=== PATIENT | male | born 1970 | race Caucasian/White ===

== ENCOUNTER 2019-07-13 04:19 | Emergency (ER) | payer MEDICAID ==
[~2019-07-13] VITALS: Ht 167.6 cm; Wt 100.2 kg
[~2019-07-13 04:19] MED LIST: CLON0.5T PO; CLON1TAB PO; TRAM50TA2 PO
--- NOTE | 2019-07-13 04:20 | NUR ---
BIBRA FROM HOME S/P "SNORTED MULTIPLE LINES OF BATHSALTS" , + tachycardia
[2019-07-13] MEDS ORDERED: LORAZEPAM INJ 2 MG/ML VIAL IV ONE (04:30)
[2019-07-13] MEDS ORDERED: LORAZEPAM INJ 2 MG/ML VIAL ONE (04:31)
[2019-07-13 04:34] LABS: BASOPHILS # (AUTO) 0.1 /CMM (0.0-0.2); BASOPHILS % (AUTO) 0.6 % (0.0-2.0); EOSINOPHILS % (AUTO) 0.3 % (0.0-6.0); HEMATOCRIT 50 % (39-51); LYMPHOCYTES # (AUTO) 1.3 /CMM (0.8-4.8); LYMPHOCYTES % (AUTO) 9.4 % (20.0-44.0); MEAN CORPUSCULAR HGB CONC 34 g/dl (31.0-36.0); MEAN CORPUSCULAR VOLUME 90 fL (80-96); MONOCYTES # (AUTO) 1.3 /CMM (0.1-1.30); NEUTROPHILS # (AUTO) 11.3 /CMM (1.8-8.9); NEUTROPHILS % (AUTO) 80.7 % (43.0-81.0); PLATELET COUNT (AUTO) 298 /CMM (150-450); RED BLOOD CELL COUNT(AUTO) 5.52 MIL/uL (4.5-6.0); WHITE BLOOD COUNT (AUTO) 14.1 K/uL (4.3-11.0)
[2019-07-13 04:41] LABS: CALCIUM, SERUM 9.7 mg/dL (8.5-10.1); CARBON DIOXIDE 28 mmol/L (21-32); CHLORIDE 97 mmol/L (98-107); CREATININE 1.5 mg/dL (0.6-1.3); GLUCOSE 155 mg/dL (74-106); POTASSIUM 3.8 mmol/L (3.5-5.1); SODIUM SERUM 135 mmol/L (136-145); UREA NITROGEN, BLOOD 20 mg/dL (7-18)
[2019-07-13] MEDS ORDERED: HALOPERIDOL LACTATE INJ 5 MG/ML VIAL ONE (04:57)
[2019-07-13] MEDS ORDERED: diphenhydrAMINE HCL 50 MG/ML VIAL ONE (04:57)
[2019-07-13] MEDS ORDERED: HALOPERIDOL LACTATE INJ 5 MG/ML VIAL IV ONE (05:00)
[2019-07-13] MEDS ORDERED: IV NS 0.9% 1,000 ML IV PRN (05:00)
[2019-07-13] MEDS ORDERED: diphenhydrAMINE HCL 50 MG/ML VIAL IV ONE (05:00)
--- NOTE | 2019-07-13 05:08 | NUR ---
an ecg prior to administration of haldol ivp was obtained. Pt remained on cont legal coordinator after receiving the medication. will cont to observe the pt closely
--- NOTE | 2019-07-13 07:42 | NUR ---
PATIENT RECEIVED SLEEPING IN GURNEY, EASILY AROUSABLE BY VOICE. HOOKED TO MONITOR, VSS. WILL CONTINUE TO MONITOR ACCORDINGLY, KEPT SAFE AND COMFORTABLE.
--- NOTE | 2019-07-13 09:21 | NUR ---
BREAKFAST TRAY PROVIDED. TOLERATING PO WELL.
--- NOTE | 2019-07-13 10:16 | NUR ---
PATIENT ABLE TO AMBULATE TO RESTROOM W STEADY GAIT.
--- NOTE | 2019-07-13 10:26 | NUR ---
IV removed. Catheter intact and site benign. Pressure and 4x4 applied to site. No bleeding noted. Patient discharged to home, assisted to waiting room in stable condition. Written and verbal after care instructions given. Patient verbalizes understanding of instruction. Patient will call mother to pick him up.
[2019-07-13 10:28] VITALS: BP 134/86
== END 2019-07-13 10:28 | disposition home or self-care (01) ==
LOC: ER 04:20
DX: F19.10 Other psychoactive substance abuse, uncomplicated (principal); F41.9 Anxiety disorder, unspecified; F43.10 Post-traumatic stress disorder, unspecified; F10.10 Alcohol abuse, uncomplicated; R00.0 Tachycardia, unspecified; Y90.9 Presence of alcohol in blood, level not specified; Z79.899 Other long term (current) drug therapy
CPT/HCPCS: 36415; 80048; 84484; 85025; 93005; 96374; 96375; 99284; J1200; J1630; J2060; J7030

== ENCOUNTER 2021-07-19 20:08 | Emergency (ER) | payer MEDICAID ==
[~2021-07-19] VITALS: Ht 172.7 cm; Wt 74.8 kg
[2021-07-19 20:49] VITALS: BP 134/77
[2021-07-19] MEDS ORDERED: IBUP-1955 PO (21:31)
--- NOTE | 2021-07-19 21:39 | NUR ---
Patient discharged to home in stable condition. Written and verbal after care instructions given. Patient verbalizes understanding of instruction.
== END 2021-07-19 21:40 | disposition home or self-care (01) ==
LOC: ER 20:18
DX: M25.562 Pain in left knee (principal); Z79.1 Long term (current) use of non-steroidal anti-inflammatories (NSAID); Z79.899 Other long term (current) drug therapy
CPT/HCPCS: 73564-TC

== ENCOUNTER 2021-10-26 07:25 | Emergency (ER) | payer MEDICAID ==
[~2021-10-26] VITALS: Ht 180.3 cm; Wt 86.2 kg
[~2021-10-26 07:25] MED LIST changes: +IBUP-1955 PO
--- NOTE | 2021-10-26 07:25 | NUR ---
BIB RA 87 FROM HOME,THROAT PAIN RADIATING TO MID-CHEST SINCE LAST NIGHT,TO ER 8,MONITOR APPLIED,EKG PER PROTOCOL
--- NOTE | 2021-10-26 07:48 | NUR ---
SALINE LOCK ESTABLISHED, BLOOD DRAWN AND SENT TO LAB
--- NOTE | 2021-10-26 07:50 | NUR ---
SEEN BY DR DRISCOLL
[2021-10-26] MEDS ORDERED: CLOP75TA15 PO (08:12)
[2021-10-26] MEDS ORDERED: LISI20TA30 PO (08:12)
[2021-10-26 08:14] LABS: BASOPHILS % (AUTO) 0.7 % (0.0-2.0); EOSINOPHILS % (AUTO) 2.3 % (0.0-6.0); HEMATOCRIT 44 % (39-51); HEMOGLOBIN 15.4 g/dL (13.5-17.5); LYMPHOCYTES % (AUTO) 27.3 % (20.0-44.0); MEAN CORPUSCULAR HGB CONC 35 g/dl (31.0-36.0); MEAN CORPUSCULAR VOLUME 88 fL (80-96); MONOCYTES # (AUTO) 0.6 K/uL (0.1-1.30); MONOCYTES % (AUTO) 8.2 % (2.0-12.0); NEUTROPHILS # (AUTO) 4.6 K/uL (1.8-8.9); NEUTROPHILS % (AUTO) 61.5 % (43.0-81.0); PLATELET COUNT (AUTO) 266 K/uL (150-450); RED BLOOD CELL COUNT(AUTO) 5.01 MIL/uL (4.5-6.0); WHITE BLOOD COUNT (AUTO) 7.5 K/uL (4.3-11.0)
--- NOTE | 2021-10-26 08:19 | NUR ---
COVID SWAB COLLECTED AND SENT TO LAB
[2021-10-26 08:50] LABS: ALANINE AMINOTRANSFERASE 105 U/L (12-78); ALBUMIN 3.8 g/dL (3.4-5.0); ALKALINE PHOSPHATASE 85 U/L (46-116); ASPARTATE AMINOTRANSFERASE 47 U/L (15-37); BILIRUBIN,DIRECT 0.1 mg/dL (0.0-0.2); BILIRUBIN,TOTAL 0.6 mg/dL (0.2-1.0); CALCIUM, SERUM 8.2 mg/dL (8.5-10.1); CARBON DIOXIDE 26 mmol/L (21-32); CHLORIDE 101 mmol/L (98-107); CREATININE 1.1 mg/dL (0.6-1.3); GLUCOSE 104 mg/dL (74-106); POTASSIUM 3.6 mmol/L (3.5-5.1); SODIUM SERUM 136 mmol/L (136-145); TOTAL PROTEIN, SERUM 7.4 g/dL (6.4-8.2); UREA NITROGEN, BLOOD 23 mg/dL (7-18)
[2021-10-26] MEDS ORDERED: ASPIRIN 325 MG TABLET PO ONE (10:30)
[2021-10-26] MEDS ORDERED: NITROGLYCERIN 0.4 MG/TAB BOTTLE SL ONE (10:30)
[2021-10-26] MEDS ORDERED: NITROGLYCERIN 0.4 MG/TAB BOTTLE ONE (10:38)
[2021-10-26] MEDS ORDERED: ASPIRIN 325 MG TABLET ONE (10:39)
[2021-10-26 11:00] VITALS: BP 142/86
--- NOTE | 2021-10-26 11:20 | NUR ---
Patient eloped from facility in stable condition. ER MD notified.
== END 2021-10-26 11:32 | disposition left against medical advice (07) ==
LOC: ER 07:35
DX: R07.9 Chest pain, unspecified (principal); R06.00 Dyspnea, unspecified; I25.10 Atherosclerotic heart disease of native coronary artery without angina pectoris; Z95.5 Presence of coronary angioplasty implant and graft; Z79.02 Long term (current) use of antithrombotics/antiplatelets; Z79.899 Other long term (current) drug therapy; F43.10 Post-traumatic stress disorder, unspecified; F41.9 Anxiety disorder, unspecified; Z20.822 Contact with and (suspected) exposure to COVID-19; Z53.20 Procedure and treatment not carried out because of patient's decision for unspecified reasons
CPT/HCPCS: 36415; 71045; 80048; 80076; 83880; 84484 ×2; 85025; 87426; 93005; 99291; C9803

== ENCOUNTER 2022-03-17 16:35 | Emergency (ER) | payer MEDICAID ==
[~2022-03-17] VITALS: Ht 175.3 cm; Wt 104.8 kg
[~2022-03-17 16:35] MED LIST changes: -CLON0.5T PO; -CLON1TAB PO; +CLOP75TA15 PO; -IBUP-1955 PO; +LISI20TA30 PO; -TRAM50TA2 PO
--- NOTE | 2022-03-17 17:05 | NUR ---
DR ARDON AT BEDSIDE FOR EVAL
--- NOTE | 2022-03-17 17:05 | NUR ---
URINE SAMPLE COLLECTED AND SENT TO LAB
--- NOTE | 2022-03-17 17:30 | NUR ---
IV LINE ESTABLISHED ON LAC #20, BLOOD DRAWN AND SENT TO LAB
[2022-03-17 17:36] LABS: BASOPHILS % (AUTO) 0.7 % (0.0-2.0); EOSINOPHILS % (AUTO) 0.8 % (0.0-6.0); HEMATOCRIT 46 % (39-51); HEMOGLOBIN 15.4 g/dL (13.5-17.5); LYMPHOCYTES % (AUTO) 28.7 % (20.0-44.0); MEAN CORPUSCULAR HGB CONC 33 g/dl (31.0-36.0); MEAN CORPUSCULAR VOLUME 90 fL (80-96); MONOCYTES # (AUTO) 0.5 K/uL (0.1-1.30); MONOCYTES % (AUTO) 14.5 % (2.0-12.0); NEUTROPHILS % (AUTO) 55.3 % (43.0-81.0); PLATELET COUNT (AUTO) 182 K/uL (150-450); RED BLOOD CELL COUNT(AUTO) 5.14 MIL/uL (4.5-6.0); WHITE BLOOD COUNT (AUTO) 3.6 K/uL (4.3-11.0)
[2022-03-17 17:45] LABS: CALCIUM, SERUM 8.5 mg/dL (8.5-10.1); CARBON DIOXIDE 28 mmol/L (21-32); CHLORIDE 105 mmol/L (98-107); CREATININE 1.3 mg/dL (0.6-1.3); GLUCOSE 108 mg/dL (74-106); SODIUM SERUM 141 mmol/L (136-145); UREA NITROGEN, BLOOD 10 mg/dL (7-18)
--- NOTE | 2022-03-17 17:46 | NUR ---
TECH AT BEDSIDE FOR EKG
[2022-03-17] MEDS ORDERED: ACETAMINOPHEN ES 500 MG TABLET PO ONE (19:00)
[2022-03-17] MEDS ORDERED: ACETAMINOPHEN ES 500 MG TABLET ONE (19:04)
--- NOTE | 2022-03-17 20:19 | NUR ---
DATA COMPILER AT PT'S BEDSIDE
--- NOTE | 2022-03-17 21:04 | NUR ---
Patient discharged to home in stable condition. Written and verbal after care instructions given. Patient verbalizes understanding of instruction. IV removed. Catheter intact and site benign. Pressure and 4x4 applied to site. No bleeding noted. pt ambulatory with a steady gait
[2022-03-17 21:05] VITALS: BP 121/67
== END 2022-03-17 21:05 | disposition home or self-care (01) ==
LOC: ER 16:37
DX: R07.89 Other chest pain (principal); I10 Essential (primary) hypertension; F41.9 Anxiety disorder, unspecified; F43.10 Post-traumatic stress disorder, unspecified; F20.9 Schizophrenia, unspecified; F32.A Depression, unspecified; Z88.0 Allergy status to penicillin; Z88.6 Allergy status to analgesic agent; Z79.899 Other long term (current) drug therapy
CPT/HCPCS: 36415; 71045-TC; 80048-TC; 84484-TC; 85025-TC

== ENCOUNTER 2022-10-29 07:49 | Emergency (ER) | payer MEDICAID ==
[~2022-10-29] VITALS: Ht 177.8 cm; Wt 104.3 kg
--- NOTE | 2022-10-29 08:40 | NUR ---
PT ON BED HOOKED TO MONITOR AND PULSE CC OF RT HEADACHE. 02/20. MD AT BEDSIDE FOR EVAL. AWAITING FOR MD ORDERS
[2022-10-29] MEDS ORDERED: ACETAMINOPHEN ES 500 MG TABLET ONE (08:56)
[2022-10-29] MEDS ORDERED: diphenhydrAMINE HCL 50 MG/ML VIAL ONE (08:56)
[2022-10-29] MEDS ORDERED: METOCLOPRAMIDE HCL 10 MG/2 ML VIAL ONE (08:56)
[2022-10-29] MEDS ORDERED: METOCLOPRAMIDE HCL 10 MG/2 ML VIAL IV ONE (09:00)
[2022-10-29] MEDS ORDERED: IV NS 0.9% 1,000 ML BAG IV ONE (09:00)
[2022-10-29] MEDS ORDERED: diphenhydrAMINE HCL 50 MG/ML VIAL IV ONE (09:00)
[2022-10-29] MEDS ORDERED: ACETAMINOPHEN ES 500 MG TABLET PO ONE (09:00)
[2022-10-29 09:26] LABS: BASOPHILS # (AUTO) 0.1 K/uL (0.0-0.2); BASOPHILS % (AUTO) 1.1 % (0.0-2.0); EOSINOPHILS % (AUTO) 5.8 % (0.0-6.0); HEMATOCRIT 46 % (39-51); HEMOGLOBIN 15.5 g/dL (13.5-17.5); LYMPHOCYTES # (AUTO) 1.6 K/uL (0.8-4.8); LYMPHOCYTES % (AUTO) 18.5 % (20.0-44.0); MEAN CORPUSCULAR HGB CONC 34 g/dl (31.0-36.0); MEAN CORPUSCULAR VOLUME 89 fL (80-96); MONOCYTES # (AUTO) 0.5 K/uL (0.1-1.30); NEUTROPHILS # (AUTO) 5.9 K/uL (1.8-8.9); NEUTROPHILS % (AUTO) 68.6 % (43.0-81.0); PLATELET COUNT (AUTO) 243 K/uL (150-450); RED BLOOD CELL COUNT(AUTO) 5.13 MIL/uL (4.5-6.0); WHITE BLOOD COUNT (AUTO) 8.6 K/uL (4.3-11.0)
[2022-10-29 09:41] LABS: CARBON DIOXIDE 27 mmol/L (21-32); CHLORIDE 100 mmol/L (98-107); CREATININE 1.1 mg/dL (0.6-1.3); GLUCOSE 118 mg/dL (74-106); POTASSIUM 3.5 mmol/L (3.5-5.1); SODIUM SERUM 136 mmol/L (136-145); UREA NITROGEN, BLOOD 13 mg/dL (7-18)
[2022-10-29] MEDS ORDERED: IOHEXOL-300 100 ML VIAL IV ONE (09:50)
--- NOTE | 2022-10-29 10:32 | NUR ---
COVID AND STREP SWAB DONE SENT TO LAB
[2022-10-29] MEDS ORDERED: DOXY100T2 PO (10:38)
[2022-10-29 10:59] VITALS: BP 130/85
== END 2022-10-29 11:03 | disposition home or self-care (01) ==
LOC: ER 07:52
DX: J32.9 Chronic sinusitis, unspecified (principal); R51.9 Headache, unspecified; I10 Essential (primary) hypertension; I25.10 Atherosclerotic heart disease of native coronary artery without angina pectoris; F41.9 Anxiety disorder, unspecified; F32.A Depression, unspecified; F20.9 Schizophrenia, unspecified; Z79.899 Other long term (current) drug therapy; Z20.822 Contact with and (suspected) exposure to COVID-19; Z88.0 Allergy status to penicillin; Z88.1 Allergy status to other antibiotic agents
CPT/HCPCS: 99285; 70450; 96374; 71045; 96361; 96375; 87426; 93005; 70490; 85025; 80048; 36415; 87880; 84484; J1200; J2765; J7030; Q9967; C9803; 86403-TC

== ENCOUNTER → 2023-08-17 | Emergency (ER) | payer MEDICAID ==
[~2023-08-17] VITALS: Ht 175.3 cm; Wt 108.9 kg
[~2023-08-17] MED LIST changes: +DOXY100T2 PO
[2023-08-17 10:13] VITALS: BP 160/93; TEMP 98.4; O2SAT 97
== END | disposition home or self-care (01) ==
LOC: ER 09:34
DX: R06.02 Shortness of breath (principal); I10 Essential (primary) hypertension; F41.9 Anxiety disorder, unspecified; F20.9 Schizophrenia, unspecified; F32.A Depression, unspecified; Z88.0 Allergy status to penicillin; Z88.8 Allergy status to other drugs, medicaments and biological substances
CPT/HCPCS: 71045-TC

== ENCOUNTER 2024-08-04 10:56 | Emergency (ER) | payer MEDICAID ==
[~2024-08-04] VITALS: Ht 175.3 cm; Wt 113.4 kg
[2024-08-04] MEDS ORDERED: IBUP-1955 PO (13:44)
[2024-08-04 13:51] VITALS: BP 141/81; TEMP 98.3; O2SAT 97
== END 2024-08-04 13:52 | disposition home or self-care (01) ==
LOC: ER 11:44
DX: M25.572 Pain in left ankle and joints of left foot (principal); F20.9 Schizophrenia, unspecified; I10 Essential (primary) hypertension; I25.10 Atherosclerotic heart disease of native coronary artery without angina pectoris; Z79.02 Long term (current) use of antithrombotics/antiplatelets; Z79.899 Other long term (current) drug therapy; Z88.0 Allergy status to penicillin; Z88.6 Allergy status to analgesic agent; Z95.5 Presence of coronary angioplasty implant and graft
CPT/HCPCS: 73610-TC; 93971-TC

== ENCOUNTER 2024-08-23 06:29 | Emergency (ER) | payer MEDICAID ==
[~2024-08-23] VITALS: Ht 177.8 cm; Wt 108.9 kg
[~2024-08-23 06:29] MED LIST changes: +IBUP-1955 PO
[2024-08-23 06:53] VITALS: BP 147/81; TEMP 98.3; O2SAT 97
== END 2024-08-23 07:36 | disposition left against medical advice (07) ==
LOC: ER 06:29
DX: R06.02 Shortness of breath (principal); Z53.21 Procedure and treatment not carried out due to patient leaving prior to being seen by health care provider

== ENCOUNTER 2024-12-22 11:14 | Emergency (ER) | payer MEDICAID ==
[~2024-12-22] VITALS: Ht 177.8 cm; Wt 110.2 kg
[2024-12-22 11:50] LABS: BASOPHILS % (AUTO) 0.7 % (0.0-2.0); EOSINOPHILS # (AUTO) 0.2 K/uL (0.0-0.7); EOSINOPHILS % (AUTO) 2.7 % (0.0-6.0); HEMATOCRIT 44 % (39-51); HEMOGLOBIN 15.1 g/dL (13.5-17.5); LYMPHOCYTES # (AUTO) 1.2 K/uL (0.8-4.8); LYMPHOCYTES % (AUTO) 19.6 % (20.0-44.0); MEAN CORPUSCULAR HEMOGLOBIN 30 PG (26.0-33.0); MEAN CORPUSCULAR HGB CONC 35 g/dl (31.0-36.0); MEAN CORPUSCULAR VOLUME 87 fL (80-96); MONOCYTES # (AUTO) 0.4 K/uL (0.1-1.30); MONOCYTES % (AUTO) 7.1 % (2.0-12.0); NEUTROPHILS # (AUTO) 4.3 K/uL (1.8-8.9); NEUTROPHILS % (AUTO) 69.9 % (43.0-81.0); PLATELET COUNT (AUTO) 249 K/uL (150-450); RED BLOOD CELL COUNT(AUTO) 5.02 MIL/uL (4.5-6.0); RED CELL DISTRIBUTION WIDTH 13.5 % (11.5-15.0); WHITE BLOOD COUNT (AUTO) 6.2 K/uL (4.3-11.0)
[2024-12-22 11:58] LABS: CALCIUM, SERUM 8.8 mg/dL (8.5-10.1); CARBON DIOXIDE 29 mmol/L (21-32); CHLORIDE 105 mmol/L (98-107); GLUCOSE 108 mg/dL (74-106); POTASSIUM 4.4 mmol/L (3.5-5.1); SODIUM SERUM 138 mmol/L (136-145); UREA NITROGEN, BLOOD 14 mg/dL (7-18)
[2024-12-22 14:27] VITALS: BP 152/92; TEMP 98.4; O2SAT 99
== END 2024-12-22 14:28 | disposition home or self-care (01) ==
LOC: ER 11:16
DX: R07.89 Other chest pain (principal); I10 Essential (primary) hypertension; F20.9 Schizophrenia, unspecified; I25.10 Atherosclerotic heart disease of native coronary artery without angina pectoris; Z79.02 Long term (current) use of antithrombotics/antiplatelets; Z79.899 Other long term (current) drug therapy; Z88.0 Allergy status to penicillin; Z88.6 Allergy status to analgesic agent; Z95.5 Presence of coronary angioplasty implant and graft
CPT/HCPCS: 36415; 71045-TC; 80048-TC; 84484-TC; 85025-TC